=== PATIENT | female | born 1955 | race Caucasian/White ===

== ENCOUNTER 2024-10-06 08:34 | Day surgery (SDC) | payer MEDICARE ==
[2024-10-05 14:36] VITALS: BMI 23.1
[2024-10-06] MEDS ORDERED: Dexamethasone 4 mg/ml Vial ONE (09:01)
[2024-10-06] MEDS ORDERED: Rocuronium Bromide 10 MG/ML (10ML VIAL) ONE (09:01)
[2024-10-06] MEDS ORDERED: Lidocaine 1% PF 5 ML VIAL ONE (09:01)
[2024-10-06] MEDS ORDERED: Ondansetron PF 4 MG/2 ML Vial ONE (09:01)
[2024-10-06] MEDS ORDERED: SUGAMMADEX SODIUM 200 MG/2 ML VIAL ONE (09:01)
[2024-10-06] MEDS ORDERED: PROPOFOL 40 ML ONE (09:01)
[2024-10-06] MEDS ORDERED: fentaNYL 50 mcg/mL 1 mL Vial ONE ×2 (09:02→12:06)
[2024-10-06] MEDS ORDERED: AFRIN NASAL MIST 15 ML BOT ONE ×2 (09:32→10:15)
[2024-10-06 09:33] LABS: #Basophils 0.03 10x3/uL (0.0-0.2); #Eosinophils 0.18 10x3/uL (0.0-0.5); #Monocytes 0.51 10x3/uL (0.0-1.1); #Neutrophils 3.42 10x3/uL (1.5-8.4); %Basophils 0.5 % (0.0-2.0); %Eosinophils 3.1 % (0.0-6.0); %Lymphocytes 27.7 % (18.0-47.0); %Monocytes 8.9 % (0.0-10.0); %Neutrophils 59.6 % (40.0-75.0); Hematocrit 37.3 % (34.9-44.5); Hemoglobin 12.3 g/dL (12.0-15.5); Mean Corpuscular Hemoglobin 29.7 pg (27.0-33.0); Mean Corpuscular Volume 90.1 fL (81.6-98.3); Mean Platelet Volume 9.8 fL (7.4-10.4); Platelet Count 237 10x3/uL (150-450); RBC Distribution Width 13.9 % (11.5-14.5); Red Blood Cell (RBC) Count 4.14 10x6/uL (3.90-5.03); White Blood Cell (WBC) Count 5.7 10x3/uL (3.5-10.5)
[2024-10-06] MEDS ORDERED: Oxymetazoline HCl 0.05% ( 15 ML ) ONE (09:37)
[2024-10-06 09:54] LABS: Anion Gap 12 mmol/L (10-20); BUN (Urea Nitrogen) 12 mg/dL (9.8-20.1); Calc. Creatinine Clearance 47 mL/min (70-130); Carbon Dioxide 27 mmol/L (23-31); Chloride 106 mmol/L (98-107); Estimated GFR 50; Glucose 91 mg/dL (83-110); Potassium 4.3 mmol/L (3.5-5.1); Sodium 141 mmol/L (136-145)
[2024-10-06] MEDS ORDERED: EPINEPHrine 1 MG/ML VIAL ONE (10:15)
[2024-10-06] MEDS ORDERED: Lidocaine 1% w/Epinephrine 1:200K 30 ML VIAL ONE (10:16)
[2024-10-06] MEDS ORDERED: Mupirocin 2% Ointment 22 GM Tube ONE (10:16)
[2024-10-06] MEDS ORDERED: methylPREDNISolone Acetate 40 mg/ml Vial ONE (10:23)
== END 2024-10-06 13:05 | disposition home or self-care (01) ==
LOC: CSHSDC 08:34
PROVIDERS: ATTEND Specialist
DX: J34.2 Deviated nasal septum (principal); J34.3 Hypertrophy of nasal turbinates; J34.9 Unspecified disorder of nose and nasal sinuses
CPT/HCPCS: 80048; 85025; 93005; J0171; J1010; J1100; J2405; J2704; J3010; 36415; 93010

== ENCOUNTER 2025-08-17 07:33 | Outpatient (CLI) | payer MEDICARE | END 2025-08-17 07:34 | disposition home or self-care (01) | LOC: CSHMAMMO 07:33 | PROVIDERS: ATTEND Specialist | DX: N62 Hypertrophy of breast (principal); Z98.890 Other specified postprocedural states | CPT/HCPCS: 76642; 77065; G0279 ==

== ENCOUNTER 2025-10-24 11:51 | Outpatient (CLI) | payer MEDICARE ==
[2025-10-24 12:46] LABS: Hematocrit 40.5 % (34.9-44.5); Hemoglobin 13.0 g/dL (12.0-15.5); Mean Corpuscular Hemoglobin 29.3 pg (27.0-33.0); Mean Corpuscular Volume 91.2 fL (81.6-98.3); Platelet Count 259 10x3/uL (150-450); Red Blood Cell (RBC) Count 4.44 10x6/uL (3.90-5.03); White Blood Cell (WBC) Count 6.45 10x3/uL (3.5-10.5)
[2025-10-24 13:04] LABS: Anion Gap 11 mmol/L (10-20); BUN (Urea Nitrogen) 13 mg/dL (9.8-20.1); Calc. Creatinine Clearance 0 mL/min (70-130); Calcium 8.9 mg/dL (7.8-10.44); Carbon Dioxide 27 mmol/L (23-31); Chloride 105 mmol/L (98-107); Glucose 90 mg/dL (83-110); Potassium 4.4 mmol/L (3.5-5.1); Sodium 139 mmol/L (136-145)
== END 2025-10-24 11:52 | disposition home or self-care (01) ==
LOC: CSHLAB 11:51
PROVIDERS: ATTEND Surgery
DX: Z01.812 Encounter for preprocedural laboratory examination (principal); K43.2 Incisional hernia without obstruction or gangrene
CPT/HCPCS: 80048; 85027

== ENCOUNTER 2025-10-26 10:33 | Day surgery (SDC) | payer MEDICARE ==
[2025-10-24 12:23] VITALS: BMI 23.0
[2025-10-26] MEDS ORDERED: Bupivacaine HCl 0.5%/Epinephrine 1:200,000/PF 30 ml Vial ONE (13:55)
[2025-10-26] MEDS ORDERED: Sevoflurane 250 ML INH ANEST BOTTLE ONE (13:55)
[2025-10-26] MEDS ORDERED: PROPOFOL 20 ML ONE (13:55)
[2025-10-26] MEDS ORDERED: CEFAZOLIN 2 GM VIAL ONE (14:01)
[2025-10-26] MEDS ORDERED: PHENYLEPHRINE-NS 100 MCG/ML 10 ML SYRINGE ONE (15:01)
[2025-10-26] MEDS ORDERED: SUGAMMADEX SODIUM 200 MG/2 ML VIAL ONE ×2 (15:13→15:23)
[2025-10-26] MEDS ORDERED: Ketorolac Tromethamine 30 MG (1 mL) VIAL ONE (15:13)
== END 2025-10-26 17:45 | disposition home or self-care (01) ==
LOC: CSHSDC 10:33
PROVIDERS: ATTEND Surgery
PROC: 0WUF4JZ Supplement Abdominal Wall with Synthetic Substitute, Percutaneous Endoscopic Approach (ICD-10-PCS; principal; 2025-10-26)
DX: K43.2 Incisional hernia without obstruction or gangrene (principal); F41.9 Anxiety disorder, unspecified; Z90.49 Acquired absence of other specified parts of digestive tract; Z90.710 Acquired absence of both cervix and uterus; Z90.89 Acquired absence of other organs; Z98.890 Other specified postprocedural states; Z91.040 Latex allergy status; Z88.2 Allergy status to sulfonamides; Z79.899 Other long term (current) drug therapy
CPT/HCPCS: 49613; J1100; J1885; J2704 ×2; S2900